=== PATIENT | female | born 1995 ===

== ENCOUNTER 2022-03-28 12:36 | Inpatient (IN) | payer SELFPAY ==
[2022-03-28] VITALS (19 sets, daily range): BP systolic 110–145; BP diastolic 71–96; PULSE 63–128; TEMP 98–98.4
[~2022-03-28 12:36] MED LIST: PRENATAL TABLET PO
--- NOTE | 2022-03-28 13:30 | NUR ---
1303- This RN at bedside. FHR deceleration heard on monitor. Not tracing well strip. Self recovered after approx 2mins. Unable to see UC on monitor, Adjusted.
--- NOTE | 2022-03-28 14:00 | NUR ---
1337- FHR late deceleration noted, down to 110bpm, lasting approx 70 seconds. Pt repositioned to WR. 1348- FHR tracin intermittently, tracing 75bpm for approx 40 secs then off monitor, then noted to be tracing 115bpm then quickly increased to baseline. O2 sat monitor on and tracing maternal HR.
--- NOTE | 2022-03-28 14:30 | NUR ---
1401- FHR late decel noted down to 110bpm, lasting approx 70 seconds, recover without intervention. 1415- Dr Lassiter called, updated on strip and Pt status, TORB: BPP now.
--- NOTE | 2022-03-28 14:52 | NUR ---
1240 PATIENT HERE FROM ER. DOES NOT SPEAK CITIZEN OF [place]. LINING PRESSER USED TO COMMUNICATE AT THIS TIME. EFM ON FHT 125 BABY VERY ACTIVE. NO CONTRACTIONS AT THIS TIME. PATIENT STATES "CRAMPS". ASSESSMENT COMPLETED BY JAYRO ELIZABETH. TIMMY Villalobos CASE.0/HIGH. DR OJEDA CALLED AND UPDATED ON ALL ABOVE INFORMATION. PATIENT HAD A ULTRASOUND HERE IN ER A COUPLE DAYS AGO THAT GAVE HERE A EDC OF 04/05/2022. ORDERS TO MONITOR PATIENT FOR HOUR PER DR OJEDA.
--- NOTE | 2022-03-28 15:00 | NUR ---
1449- US tech at bedside. Steam Trap Worker service used. EFM and TOCO off for BPP.
--- NOTE | 2022-03-28 15:30 | NUR ---
1515- Dr Lassiter at nurses station, reviews strip. Updated that US has been at bedside for approx 25mins. MD to bedside to talk to US tech. reports to this RN and MAO Hogan that BPP is 0/8 at this time, wants FHR back on monitor now. 1518- Nino.Mao Cm to bedside, EFM and TOCO on and tracing. LR bag #2 hung and infusing. MD has procedure in main OR now. Plans to return to L&D and perform primary section. Instucted to call Dr Davis if heart tones non-reassuring while MD in main OR.
[2022-03-28 15:43] LABS: BASO % 0.3 % (0.0-2.0); EOS # 0.1 K/mm3 (0.0-0.7); EOS % 1.4 % (0.0-4.0); GRAN # 5.7 K/mm3 (1.4-6.5); GRAN % 61.6 % (42.2-75.2); HEMATOCRIT 37.2 % (37.0-47.0); HEMOGLOBIN 12.1 g/dl (12.5-16.0); LYMPH # 2.4 K/mm3 (1.2-3.4); LYMPH % 26.1 % (20.0-51.0); MEAN CELL VOLUME 84 fl (80.0-100.0); MEAN CORPUSCULAR HEMOGLOBIN 27 pg (27-31); MEAN CORPUSCULAR HGB CONC 33 g/dl (33.0-37.0); MONO # 0.9 K/mm3 (0.1-0.6); MONO % 10.2 % (1.7-9.3); PLATELET COUNT 178 K/mm3 (130-400); RED BLOOD COUNT 4.42 M/mm3 (4.10-5.30); REDCELL DISTRIBUTION WIDTH-CV 14.6 % (11.5-14.5)
--- NOTE | 2022-03-28 16:00 | NUR ---
THIS NURSE ASSUMES CARE, RECEIVES NURSE TO NURSE REPORT FROM CLARA CONSTANTINO AND CLARA DIAL. PT ALREADY HAS IV PLACED, CONNOLLY PLACED, LR INFUSING PER PROTOCOL. PT IS CLIPPED AND ALREADY PREPPED FOR SURGERY. WILL WALK TO OR SHORTLY PER ANESTHESIA.
[2022-03-28 16:55] LABS: TRICYCLIC ANTIDEPRESS URINE NEGATIVE
--- NOTE | 2022-03-28 18:10 | NUR ---
PT TO PP ROOM IN STABLE CONDITION. LOCHIA SCANT, FUNDUS FIRM AT THE UMBILICUS. MATERNAL VITAL SIGNS STABLE. CLARA CHANG AT BEDSIDE WITH ATTEMPTING SNS. INTERPRETOR SERVICE IN USE, PT ABLE TO COMMUNICATE WELL VIA INTERPRETOR. NURSE TO NURSE REPORT AT THIS TIME TO CLARA VERDUGO.
--- NOTE | 2022-03-28 21:00 | NUR ---
2100 TRANSLATER USED TO INSTRUCT PT ON PERICARE, CONNOLLY REMOVAL, PAIN MEDICATION AND BABY CARE. NO QUESTIONS FROM PT AT THIS TIME. PERICARE DONE. SM VAG BLEEDING NOTED. CAN MOVES LEGS SOMEWHAT BUT CANNOT LIFT THEM OFF OF BED. CONNOLLY CONTS TO INFUSE. IV TO INT. HOLDING BABY. REGULAR DIET TAKEN EARLIER AND RETAINED. 2129 TYLENOL X2 PO GIVEN.
[2022-03-29 02:00] VITALS: BP 116/62; PULSE 87; TEMP 98.2
[2022-03-29 07:54] VITALS: BP 131/76; PULSE 86; TEMP 98.2
[2022-03-29 10:30] VITALS: BP 124/87; PULSE 87; TEMP 98.2
[2022-03-29] MEDS ORDERED: MOTRIN 800800 MG/TAB PO (11:38)
[2022-03-29] MEDS ORDERED: PERCOCET 325 MG1 TA2 PO (11:38)
[2022-03-29 15:45] VITALS: BP 138/76; PULSE 82; TEMP 97.9
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
--- NOTE | 2022-03-29 17:39 | NUR ---
0715 RN BEDSIDE. RN USES MILLER DISTILLERY TO GO OVER PLAN OF CARE FOR THE DAY AND EDUCATION. RN EDUCATES PATIENT ON FEEDING , HOW TO FILL OUT CERTIFICATE, EDUCATION PACKET MATERIALS, WHEN TO CALL RN TODAY, NEED FOR PATIENT TO CALL OUT BEFORE INFANT FEEDS SO RN CAN CHECK INFANT BLOOD SUGARS. PT VERBALIZES UNDERSTANDING AND ALL QUESTIONS ARE ANSWERED AT THIS TIME.
[2022-03-29 20:30] VITALS: BP 119/71; PULSE 81; TEMP 97.5
[2022-03-30 07:00] VITALS: BP 113/70; PULSE 73
--- NOTE | 2022-03-30 13:07 | NUR ---
CONTACTED CERTIFIED FINANCIAL PLANNER GABE TO INFORM HER THAT THE CAR SEAT THAT WAS BROUGHT TO THE OB UNIT FROM THE PATIENT'S FAMILY IS A DEMO CAR SEAT. THE CARSEAT IS STITCHED WITH THIS INFORMATION ON IT AND IS NOT TO BE UTILIZED A SAFE CARSEAT. THE IS SGA, SO A CARSEAT TRIAL IS NEEDED BEFORE DISCHARGE. GABE (CERTIFIED FINANCIAL PLANNER) STATED THAT SHE WOULD CALL AGENCYS BUT IF UNABLE TO FIND ONE TODAY THE PATIENT WOULD HAVE TO GO BUY ONE.
--- NOTE | 2022-03-30 13:08 | NUR ---
Phone call received by RN that the patient has a car seat but it is a "demo" and they are unable to use this as a means to take baby home in. Educated RN that it will be very difficult to get ahold of a car seat over the weekend as much of our resource agencies are closed, and the patient may need to private pay for one. Phone call made to the [facility] and was unable to reach a person due to their admin office being closed. Phone call made to Ajit [facility]/ [facility] and was unsuccessful. Message left.
[2022-03-30 16:00] VITALS: BP 112/70; PULSE 75; TEMP 97.3
[2022-03-30 21:15] VITALS: BP 129/83; PULSE 92; TEMP 97.8
--- NOTE | 2022-03-30 21:39 | NUR ---
MACHINE BASTER ID #[id number] TO ASSIST IN COMMUNITCATING NEEDS OF PATIENT. THIS NURSE ADVISED PT OF INCISIONAL CARE AND SHOWERING. PT REQUESTS BINDER BACK ON, WHICH NURSE ASSISTED WITH. ADVISED PATIENT OF CAR SEAT TRIAL AND BABY PASSING THAT TEST. PT ASKED WHEN SHE WOULD BE ABLE TO GO HOME. THIS NURSE ADVISED PT THAT DOCTOR WILL MAKE ROUNDS IN THE MORNING, AND SHE SHOULD BE ABLE TO GO HOME TOMORROW LONG THE DOCTOR GIVES THE ORDER. PT WAS ADVISED THAT BABY HAD BEEN FED BY THIS NURSE AND WAS CURRENTLY SLEEPING. PT WAS ASKED IF SHE WOULD LIKE BABY TO COME BACK TO MOM'S ROOM OR IF SHE WOULD LIKE BABY TO REMAIN IN THE NURSERY SO MOM COULD GET SOME REST. PT REQUESTED FOR BABY TO STAY IN THE NURSERY SO SHE COULD REST. PT HAD NO MORE QUESTIONS OR CONCERNS AT THIS TIME. THIS NURSE ADVISED PT TO USE THE CALL LIGHT IF SHE NEEDED ANYTHING.
[2022-03-31 08:15] VITALS: BP 121/86; PULSE 86; TEMP 97.7
--- NOTE | 2022-03-31 08:15 | NUR ---
Rests in bed, alert. Ibuprofen 800 mg given as ordered.
[2022-03-31] MEDS ORDERED: BREASTPUMP MC (08:54)
== END 2022-03-31 13:10 | disposition home or self-care (01) | DRG 788 ==
LOC: LDRO 12:36 → OB 15:45 → LDR 15:45 → OB 18:15
PROVIDERS: ADMIT Obstetrics & Gynecology
PROC: 10D00Z1 Extraction of Products of Conception, Low, Open Approach (ICD-10-PCS; principal; 2022-03-28)
DX: O76 Abnormality in fetal heart rate and rhythm complicating labor and delivery (principal); Z37.0 Single live birth; O34.03 Maternal care for unspecified congenital malformation of uterus, third trimester; Q51.28 Other and unspecified doubling of uterus; Z91.410 Personal history of adult physical and sexual abuse; O28.8 Other abnormal findings on antenatal screening of mother; Z3A.39 39 weeks gestation of pregnancy
CPT/HCPCS: J0690; J1100; J1885; J2405; J2590; J7120